=== PATIENT | female | born 1980 | race Asian ===

== ENCOUNTER 2016-08-27 08:23 | Inpatient (IN) | payer BC ==
[2016-08-27 09:27] LABS: ROM Internal QC QC Line Present
[2016-08-27 12:19] LABS: Hematocrit 40 % (35-47); Hemoglobin 13.4 g/dl (12.0-16.0); Mean Corpuscular HGB Conc 34 g/dl (31-36); Mean Corpuscular Hemoglobin 30 pg (27-31); Mean Corpuscular Volume 90 fL (80-97); Mean Platelet Volume 11 um3 (7.4-10.4); Red Blood Count 4.44 10^6/ul (4.0-5.4); Red Cell Distribution Width 14 % (10.5-15); White Blood Count 10.3 10^3/ul (3.5-10.8)
[2016-08-27] MEDS ORDERED: Oxytocin in LR* 20 UNITS/1,000 ML BAG IVPB SCH (14:00)
[2016-08-27] MEDS ORDERED: OBEPIDURAL* 0 ML ONE (15:53)
[2016-08-27] MEDS ORDERED: Dibucaine 1% 28.35 GM TUBE PR PRN (17:06)
[2016-08-27] MEDS ORDERED: Acetaminophen TAB* 325 MG PO PRN (17:06)
[2016-08-27] MEDS ORDERED: Witch Hazel PAD* JAR TOPICAL PRN (17:06)
[2016-08-27] MEDS: Docusate CAP* 100 MG PO SCH (22:50)
[2016-08-28] MEDS: Ibuprofen TAB* 600 MG PO PRN ×4 (00:09→20:25)
--- NOTE | 2016-08-28 07:22 | PTEDU ---
Patient Name: CECI BOX CHARUCECI selected video: Never Ever Shake a Baby to view on 08/28/2016 at 7:20:54 AM [id number]
[2016-08-28 08:43] LABS: Hematocrit 35 % (35-47); Hemoglobin 11.8 g/dl (12.0-16.0); Mean Corpuscular HGB Conc 33 g/dl (31-36); Mean Corpuscular Hemoglobin 30 pg (27-31); Mean Corpuscular Volume 90 fL (80-97); Mean Platelet Volume 11 um3 (7.4-10.4); Red Blood Count 3.93 10^6/ul (4.0-5.4); Red Cell Distribution Width 14 % (10.5-15); White Blood Count 15.4 10^3/ul (3.5-10.8)
[2016-08-28 08:46] LABS: Add Diff/Slide Review? Slide Review Added; Comments Flag Yes
[2016-08-28] MEDS: Docusate CAP* 100 MG PO SCH ×3 (09:14→20:25)
[2016-08-28] MEDS: Ferrous Gluconate TAB* 324 MG TAB PO SCH ×2 (17:41→21:51)
[2016-08-29 08:07] VITALS: BP 109/65
[2016-08-29] MEDS: Docusate CAP* 100 MG PO SCH (08:33)
== END 2016-08-29 11:37 | disposition home or self-care (01) | DRG 560 ==
LOC: MCHOBOUT 08:23 → MCHOB 09:35
PROVIDERS: ADMIT Midwife; ATTEND Midwife
PROC: 10E0XZZ Delivery of Products of Conception, External Approach (ICD-10-PCS; principal; 2016-08-27)
PROC: 0HQ9XZZ Repair Perineum Skin, External Approach (ICD-10-PCS; 2016-08-27)
DX: O42.92 Full-term premature rupture of membranes, unspecified as to length of time between rupture and onset of labor (principal); O70.0 First degree perineal laceration during delivery; Z3A.37 37 weeks gestation of pregnancy; Z37.0 Single live birth
CPT/HCPCS: 36415; 84112; 85025; 85027; 86850; 86900; 86901; A9270-GY